=== PATIENT | male | born 1965 | race Caucasian/White ===

== ENCOUNTER 2017-06-17 18:13 | Inpatient (IN) | payer OTHER ==
[~2017-06-17] VITALS: Ht 175.3 cm; Wt 61.2 kg
--- NOTE | ~2017-06-17 | PN ---
Unit #: [id number] #: [id number] Patient: ISSA KNIGHT [id number] [facility] [address] [place] [address] [id number] MR#: [id number] NAME: ISSA KNIGHT ROOM: [facility] Age: 52 Sex: M Admission Date: 06/17/2017 : 1965 Attending Physician: Azam Lynn M.D. Admitting Physician: Azam Lynn M.D. Primary Care Physician: Rito Tenorio PROGRESS NOTES DATE OF SERVICE: 06/19/2017 SUBJECTIVE Mr. Knight is a 52-year-old white male who was seen today and chart was reviewed, and case was discussed with the staff. He has been anxious, withdrawn, rather seclusive to himself. Meanwhile, he has been cooperative with treatment recommendations and has been taking the medications and tolerating them fairly well with no reported side effects. MENTAL STATUS EXAMINATION Middle aged white male who was casually dressed with fair personal hygiene, appears to be in no acute distress or discomfort. He was awake and alert with impaired attention and concentration. His mood was anxious with a congruent affect. He denies any suicidal or homicidal ideations, and also denies any auditory or visual hallucinations. His insight and judgment remain slightly impaired. TREATMENT PLAN 1. We will continue him on his current medications and treatment protocol. We will monitor his response to medications and make further adjustments as needed. 2. We will continue to follow up. Dictated by... Rito Funk/neymar TD: 06/19/2017 16:32 JOB #: [id number] JEFFREY PROGRESS NOTES Page 1 of 1 X Azam Lynn MD X PROGRESS NOTE
--- NOTE | ~2017-06-17 | PA ---
Unit #: [id number] #: [id number] Patient: ISSA KNIGHT [id number] [facility] [address] [place] [address] [id number] MR#: [id number] NAME: ISSA KNIGHT ROOM: P110 Age: 52 Sex: M Admission Date: 06/17/2017 : 1965 Date of Assessment: 06/18/2017 Attending Physician: Azam Lynn M.D. Admitting Physician: Azam Lynn M.D. Primary Care Physician: Elmer Sahu M.D. PSYCHIATRIC ASSESSMENT DATE OF SERVICE 06/18/2017. IDENTIFYING DATA Mr. Knight is a 52-year-old white male, who is a resident of [place], [place], and was self-referred to the hospital on a voluntary basis. CHIEF COMPLAINT "Suicidal ideations and thoughts of ." HISTORY OF PRESENT ILLNESS Mr. Knight is a 52-year-old white male with history of mood disorder, who was self-referred to the hospital reporting increasing depression, suicidal ideation, thoughts of , and reports that he does not care what happens to him and reports thoughts are worse over the past week and has been having constant thoughts of and suicide and does not care if he gets hit by a car or get shot by someone and has been talking about walking into traffic and later when speaking with the patient and his , his reports that the patient has been talking about hanging himself and the patient confirmed this and was seen to be a significant danger to himself and as such, recommendation for inpatient level of care for safety and stabilization was made. SUBSTANCE ABUSE HISTORY The patient denies any alcohol or drug abuse, though he has been going to Dr. Denney on an outpatient basis and despite having history of depression and suicide, only medication he has been getting from Dr. Denney is Xanax at a very high dose of 2 mg t.i.d. and if anything it has been causing, more depression and not helping his cause. PAST MEDICAL HISTORY The patient's medical history is insignificant. ALLERGIES No known medication allergies. PERSONAL AND SOCIAL HISTORY A 52-year-old white male, who reports that he is and unemployed and lives at home with his and has fairly decent social support system. MENTAL STATUS EXAMINATION Unit #: [id number] #: [id number] Patient: ISSA KNIGHT Middle-aged white male who was casually dressed with fair personal hygiene, appears to be in no acute distress or discomfort. He was awake and alert on interaction with intact orientation to time, place, and person. His mood was anxious and depressed with a congruent affect. His speech was slow and restricted in content. His thought processes were disorganized with some looseness of associations and flight of ideas and suicidal ideations. His insight and judgment remain significantly impaired. DIAGNOSTIC IMPRESSION Psychiatric: Major depressive disorder, recurrent, moderate, without psychotic features; generalized anxiety disorder. Medical: None. Stressors: Moderate psychosocial stressors. TREATMENT PLAN 1. The patient has presented with history of mood disorder, and has been decompensating and will need inpatient hospitalization for safety and stabilization. We will start him back on his home medications. We will adjust the medications and monitor response. 2. Supportive therapy was provided to the patient. 3. Safe, structured, and nourishing environment will be provided. ESTIMATED LENGTH OF STAY 5 to 7 days. ABILITY TO HELP SELF Limited. WILLINGNESS TO HELP SELF The patient appears to be willing to help self. STRENGTHS 1. Communicative. 2. Cooperative. PROBLEMS 1. Chronic dysphoric symptoms. 2. Poor social support system. DISCHARGE CRITERIA This will be contingent upon the patient's ability to show resolution of his depression and anxiety as well as his ability to stay safe to himself, particularly after discharge from the hospital. Dictated by... Azam Lynn M.D. ROSE MARIE/neymar TD: 06/18/2017 07:57 JOB #: [id number] Unit #: [id number] #: [id number] Patient: ISSA KNIGHT PSYCHIATRIC ASSESSMENT Page 1 of 1 X Azam Lynn MD X PSYCHIATRIC ASSESSMENT
--- NOTE | ~2017-06-17 | HP ---
Unit #: [id number] #: [id number] Patient: MAURICIO ARREOLA [id number] [facility] [address] [place] [address] [id number] MR#: [id number] NAME: MAURICIO ARREOLA ROOM: P110 Age: 52 Sex: M Admission Date: 06/17/2017 : 1965 Attending Physician: Azam Lynn M.D. Admitting Physician: Azam Lynn M.D. Primary Care Physician: Elmer Sahu M.D. HISTORY AND PHYSICAL HISTORY OF PRESENT ILLNESS Mauricio is a 52-year-old male admitted on 06/17/[address] [place] [address] for depression and suicidal ideation. PAST MEDICAL HISTORY None. PAST SURGICAL HISTORY Right eye removal with current prosthetic in place. ALLERGIES Codeine, gabapentin and ibuprofen. SOCIAL HISTORY He smokes 1-1/2 packs of cigarettes daily. No alcohol use and denies illegal drug use. He is currently and living with his . FAMILY HISTORY Noncontributory. REVIEW OF SYSTEMS CONSTITUTIONAL: No fever or chills. HEENT: Denies any sore throat, ear pain or runny nose. CARDIOVASCULAR: Denies chest pain, irregular heart rhythm or palpitations. CHEST: Denies shortness of breath or cough. No hemoptysis. GASTROINTESTINAL: Denies nausea, vomiting, diarrhea or chronic constipation. ENDOCRINE: Denies history of increased thirst or urination. No recent significant weight loss or gain. GENITOURINARY: Denies dysuria, frequency, or hematuria. SKIN: Denies any rashes. HEMATOLOGIC: Denies history of increased bleeding or bruising. MUSCULOSKELETAL: Denies any hot, swollen joints. No generalized muscle pain. NEUROLOGIC: Denies problems with vision or speech. No frequent, severe headaches. No numbness, tingling or weakness in any extremities. Denies loss of bladder or bowel control. CURRENT MEDICATIONS None. PHYSICAL EXAMINATION GENERAL: Alert, oriented, in no acute distress. Unit #: [id number] #: [id number] Patient: MAURICIO ARREOLA VITAL SIGNS: Blood pressure 110/79, heart rate 79, respirations 18. HEIGHT: 5 feet 9. WEIGHT: 138 pounds. SKIN: Warm and dry without rash or lesion. HEENT: Poorly fitting right eye prosthesis. NECK: Supple without lymphadenopathy or thyromegaly. HEART: Regular rate and rhythm without murmur. LUNGS: Clear. ABDOMEN: Soft, nontender, without masses or hepatosplenomegaly. : Not done. EXTREMITIES: No evidence of cyanosis, clubbing or edema. Moves all without focal deficit. NEUROLOGICAL: Grossly within normal limits. Cranial Nerves: II: Visual handy are intact. III, IV AND : Extraocular movements are intact. Pupils are equal, round and reactive to light. V: Facial sensation is grossly normal. VII: Facial movements and expression are normal. VIII: Auditory acuity grossly intact. IX, X: Uvula is midline. Phonation is normal. XI: Patient shrugs shoulders and turns head normally. XII: Tongue protrudes in the midline. Sensory and Motor Function: Sensory and motor sensation is grossly normal. Motor: moves all extremities well. Coordination: Gait is normal. Deep Tendon Reflexes: Intact. IMPRESSION Psychiatric admission. RECOMMENDATIONS PSYCHIATRIC: Per psychiatrist. MEDICAL: No contraindication to participate in facility's activities. MEDICAL PROGNOSIS Good. MEDICAL CONDITION Stable. Dictated by... Stephenie Harrell/mildred TD: 06/18/2017 22:13 JOB #: [id number] Unit #: [id number] #: [id number] Patient: MAURICIO ARREOLA HISTORY AND PHYSICAL Page 1 of 1 X MALGORZATA HERNANDEZ APRN X HISTORY AND PHYSICAL
--- NOTE | ~2017-06-17 | PN ---
Unit #: [id number] #: [id number] Patient: ISSA KNIGHT [id number] [facility] [address] [place] [address] [id number] MR#: [id number] NAME: ISSA KNIGHT ROOM: P110 Age: 52 Sex: M Admission Date: 06/17/2017 : 1965 Attending Physician: Azam Lynn M.D. Admitting Physician: Azam Lynn M.D. Primary Care Physician: Rito Tenorio PROGRESS NOTES DATE 06/20/2017 DISCUSSION Mr. Knight is a 52-year-old, white male who was seen today and chart was reviewed and case was discussed with the staff. He has been anxious, withdrawn and rather seclusive to himself. Meanwhile, he has been cooperative with the treatment recommendations. He has been taking the medication and tolerating them fairly well with no reported side effects. MENTAL STATUS EXAM Middle-aged white male who was casually dressed with fair personal hygiene, appears to be in no acute distress or discomfort. He was awake and alert with impaired attention and concentration. His mood was anxious with congruent affect. He denies any suicidal or homicidal ideation. Also, denies any auditory or visual hallucinations. His insight and judgement remains slightly impaired. TREATMENT PLAN 1. We will continue him on his current medications and treatment protocol. We will monitor his response and make further adjustments as needed. 2. We will continue to follow up. Dictated by... Rito Funk/yon TD: 06/22/2017 01:39 JOB #: [id number] Unit #: [id number] #: [id number] Patient: ISSA KNIGHT PROGRESS NOTES Page 1 of 1 X Azam Lynn MD PROGRESS NOTE
--- NOTE | ~2017-06-17 | DS ---
Unit #: [id number] #: [id number] [facility] [id number] [facility] [address] [place] [address] [id number] MR#: [id number] NAME: ISSA KNIGHT ROOM: P110 Age: 52 Sex: M Admission Date: 06/17/2017 : 1965 Discharge Date: 06/21/2017 Attending Physician: Azam Lynn M.D. Primary Care Physician: Elmer Sahu M.D. DISCHARGE SUMMARY IDENTIFYING DATA Mr. Knight is a 52-year-old white male, who is a resident of [place], [place], and was self-referred to the hospital on a voluntary basis with a chief complaint of "suicidal ideations and thoughts of ." DISCHARGE DIAGNOSES Psychiatric: Major depressive disorder, recurrent, moderate, without psychotic features; generalized anxiety disorder. Medical: None. Stressors: Mild psychosocial stressors. HISTORY OF PRESENT ILLNESS Please see initial psychiatric evaluation for details. PAST PSYCHIATRIC HISTORY Please see initial psychiatric evaluation for details. PAST MEDICAL HISTORY Please see initial psychiatric evaluation for details. HOSPITAL COURSE The patient was admitted to the adult psychiatric unit at [facility] and was oriented to the hospital environment. Routine p.r.n. medications were initiated, and he was noticed to be on a high dose of benzodiazepine, which appears to be the only medication he was getting from his outpatient psychiatrist, Dr. Denney, who has been famous in prescribing benzodiazepines and other narcotics and despite him being suicidal and having history of depression, he was surprisingly not getting any antidepressant and as such, he was put on the detox protocol for benzodiazepines and was detoxed off high dose of Xanax which actually he did not have any withdrawal symptoms at all despite being on high dose of Xanax which really makes me question if he has been even taking that medication or just getting it from the doctors and selling it; however, Effexor and BuSpar were initiated for depression and anxiety which were the issues in hand and reason for his presentation and was able to show a fairly decent and therapeutic response and it was noticed that he presented to the hospital with his which has been a frequent flyer to the hospital and as soon as is leaving, he was demanding to leave as well and was denying any suicidal ideations, intent, or plan and as such, it was decided that he will be discharged home and will continue treatment on an outpatient basis. DISCHARGE MEDICATIONS Effexor XR 75 mg b.i.d. for depression and BuSpar 10 mg b.i.d. for anxiety. Unit #: [id number] #: [id number] Patient: ISSA KNIGHT DISCHARGE CONDITION Stable. PROGNOSIS Fair. Dictated by... Rito Funk/neymar TD: 06/21/2017 22:54 JOB #: [id number] DISCHARGE SUMMARY Page 1 of 1 X Azam Lynn MD X DISCHARGE SUMMARY
[~2017-06-17 18:13] MED LIST: ATARAX PO; BACTRIM DS TABL1 TA1 PO; FLEXERIL PO; FLEXERIL10 MG PO; HYDROCODON-ACE1 EACH PO; IBUPROFEN600 MG PO; IBUPROFEN800 MG PO; KEFLEX PO; KEFLEX500 MG PO; LORTAB 5/500 TA1 TA2 PO; MOTRIN400 MG PO; NAPROXEN PO; NO MEDICATIONS; ULTRAM PO; VICODIN 5/1 TAB 5/50 PO; VOLTAREN75 MG PO
[2017-06-18 09:36] LABS: BASOPHIL# 0.1 X10e3 (0-0.3); EOSINOPHIL# 0.3 X10e3 (0-0.7); EOSINOPHIL% 3.3 % (0.0-7.0); HEMATOCRIT 47.8 % (38.0-50.0); HEMOGLOBIN 15.8 gm/dL (13.0-16.0); LYMPHOCYTE# 2.2 X10e3 (1.0-3.5); LYMPHOCYTE% 22.4 % (17.0-45.0); MEAN CELL VOLUME 91.5 FL (83-96); MEAN CORPUSCULAR HEMOGLOBIN 30.1 PG (28-34); MEAN CORPUSCULAR HGB CONC 32.9 g/dL (30-36); MEAN PLATELET VOLUME 9.2 FL (6.5-11.5); MONOCYTE# 1.1 X10e3 (0-1.0); MONOCYTE% 10.9 % (3.0-12.0); NEUTROPHIL# 6.1 X10e3 (1.5-7.1); NEUTROPHIL% 62.4 % (40-75); PLATELET COUNT 220 X10e3 (140-420); RED BLOOD COUNT 5.23 X10e (3.90-5.60); RED CELL DISTRIBUTION WIDTH 13.6 % (11.0-15.5); WHITE BLOOD COUNT 9.7 X10e3 (4.0-10.5)
[2017-06-18 09:48] LABS: DIFF IND NO
[2017-06-18 09:55] LABS: BILIRUBIN,TOTAL 0.6 mg/dL (0.2-2.0); BUN/CREATININE RATIO 19.09; CALCIUM SERUM 9.6 mg/dL (8.4-10.2); CREATININE SERUM 1.1 mg/dL (0.6-1.4); GLOM FILT RATE Estimated 76.8 mL/min (>60); PROTEIN TOTAL SERUM 7.6 g/dL (6.0-8.3)
== END 2017-06-21 14:04 | disposition home or self-care (01) | DRG 885 ==
LOC: P1S 20:02
PROVIDERS: Psychiatry & Neurology Psychiatry
DX: F33.1 Major depressive disorder, recurrent, moderate (principal); F41.1 Generalized anxiety disorder; F17.210 Nicotine dependence, cigarettes, uncomplicated
CPT/HCPCS: 80053; 85025